=== PATIENT | male | born 1950 | race Two or more races ===

== ENCOUNTER 2022-01-04 19:57 | Inpatient (IN) | payer BC, OTHER ==
[~2022-01-04] VITALS: Ht 175.3 cm; Wt 96.8 kg
[2022-01-04] MEDS ORDERED: methylPREDNISolone SOD SUCC 125 MG/2 ML VL IV ONE ×2 (20:15→21:30)
[2022-01-04] MEDS ORDERED: ALBUTEROL SULF 2.5 MG/0.5ML(0.5%) NEB SOLN HHN ONE (20:15)
[2022-01-04] MEDS ORDERED: IPRATROPIUM BROM 0.5 MG/2.5ML INH SOL HHN ONE (20:15)
[2022-01-04] MEDS ORDERED: ALBUTEROL SULF 2.5 MG/0.5ML(0.5%) NEB SOLN NEB ONE (21:30)
[2022-01-04 21:57] LABS: Basophils # (auto) 0 10 ^3/uL (0-0.2); Basophils % (auto) 0.4 % (0.0-2.0); Eosinophils # (auto) 0 10 ^3/uL (0-0.8); Hematocrit 47.2 % (41.0-53.0); Hemoglobin 16.3 g/dL (13.5-17.5); Lymphocytes # (auto) 1.2 10 ^3/uL (0.4-5.4); Lymphocytes % (auto) 11.5 % (10.0-50.0); Mean Corpuscular Hemoglobin 33.7 pg (28.0-32.0); Mean Corpuscular Hgb Conc. 34.6 g/dL (32.0-36.0); Mean Corpuscular Volume 97.5 fL (80.0-100.0); Monocytes % (auto) 9.6 % (0.0-12.0); Neutrophils # (auto) 8.5 10 ^3/uL (1.6-8.6); Neutrophils % (auto) 78.5 % (37.0-80.0); Nucleated Red Blood Cells % 0.3 %; Red Blood Cells 4.85 10^6/uL (4.5-5.90); Red Cell Distribution Width 13.5 % (11.8-14.3); White Blood Cell 10.8 10^3/uL (4.4-10.8)
[2022-01-04] MEDS ORDERED: diazePAM 5 MG TAB PO ONE (22:15)
[2022-01-04] MEDS: MAGNESIUM SULFATE 1GM/100ML 100 ML IV SCH (23:00)
[2022-01-04 23:09] LABS: Albumin 2.7 g/dL (3.4-5.0); Calcium 8.7 mg/dL (8.5-10.1); Potassium 4.5 mmol/L (3.5-5.1)
[2022-01-04 23:14] LABS: BUN/Creatinine Ratio 31.3; Bilirubin, Total 1.1 mg/dL (0.2-1.0); Total Protein 7.9 g/dL (6.4-8.2)
[2022-01-04 23:16] LABS: Lactic Acid w/Reflex 3.7 mmol/L (0.4-2.0)
[2022-01-04] MEDS ORDERED: LORazepam 2MG/ML-1ML VIAL IV ONE (23:45)
[2022-01-05 00:03] LABS: INR 1.08 (0.9-1.15); Partial Thromboplastin Time 26.2 sec (23.6-33.0)
[2022-01-05] MEDS: MAGNESIUM SULFATE 1GM/100ML 100 ML IV SCH ×2 (00:08→00:09)
[2022-01-05] MEDS ORDERED: cefTRIAXone 1GM/50ML D5W 50 ML IV ONE (03:15)
[2022-01-05] MEDS ORDERED: HEPARIN SODIUM (PORCINE) 5000 UNITS/ML 1ML VIAL IV ONE (03:15)
[2022-01-05] MEDS ORDERED: HEPARIN DRIP/D5W 100UNITS/ML 250 ML IV SCH (03:15)
[2022-01-05] MEDS ORDERED: AZITHROMYCIN 500MG/ 250ML 250 ML IV ONE (03:15)
[2022-01-05] MEDS ORDERED: IOHEXOL 350 MG/ML 100ML IJ ONE (03:25)
[2022-01-05] MEDS ORDERED: IPRATROPIUM BROM 0.5 MG/2.5ML INH SOL NEB PRN (06:45)
[2022-01-05] MEDS ORDERED: DOCUSATE SOD 100 MG CAP PO PRN (06:45)
[2022-01-05] MEDS ORDERED: HYDROcodone-ACET 5/325MG TAB PO PRN (06:45)
[2022-01-05] MEDS ORDERED: ACETAMINOPHEN 325 MG TAB PO PRN (06:45)
[2022-01-05] MEDS ORDERED: hydrALAZINE HCL 20 MG/ML VL IV PRN (06:45)
[2022-01-05] MEDS ORDERED: ONDANSETRON HCL 4 MG/2 ML VIAL IV PRN (06:45)
[2022-01-05] MEDS ORDERED: FUROSEMIDE 40 MG/4 ML VIAL IV ONE (06:45)
[2022-01-05] MEDS ORDERED: AMLO-489 PO (06:58)
[2022-01-05] MEDS ORDERED: METO-158 PO (06:58)
[2022-01-05] MEDS ORDERED: MELO1TAB56 PO (06:58)
[2022-01-05] MEDS ORDERED: ALLO300T2 PO (06:58)
[2022-01-05] MEDS ORDERED: TIZA4TAB9 PO (06:58)
[2022-01-05] MEDS ORDERED: FURO1TAB33 PO (06:58)
[2022-01-05 07:03] LABS: Albumin 2.5 g/dL (3.4-5.0); Calcium 8.7 mg/dL (8.5-10.1); Potassium 3.6 mmol/L (3.5-5.1)
[2022-01-05 07:08] LABS: BUN/Creatinine Ratio 29.6; Bilirubin, Total 0.6 mg/dL (0.2-1.0); Total Protein 7.3 g/dL (6.4-8.2)
[2022-01-05] MEDS ORDERED: NITROGLYCERIN 0.4 MG SL TAB SL PRN (07:15)
[2022-01-05] MEDS ORDERED: MORPHINE SULFATE INJECTION 2 MG/ML SYRG IV PRN (07:15)
[2022-01-05] MEDS ORDERED: VANCOMYCIN PER PHARMACY 0 MG IV SCH (07:15)
[2022-01-05 07:45] VITALS: BP 132/87
[2022-01-05] MEDS ORDERED: VANCOMYCIN 1GM/250ML 250 ML IV ONE (08:15)
[2022-01-05] MEDS: amLODIPine BESYLATE 5 MG TAB PO SCH (09:09)
[2022-01-05] MEDS: FAMOTIDINE (10MG/ML) 2ML VL IV SCH ×2 (09:09→21:34)
[2022-01-05] MEDS: CARVEDILOL 12.5 MG TAB PO SCH ×2 (09:09→21:35)
[2022-01-05] MEDS: ZINC SULFATE 220mg CAP or TAB PO SCH (09:09)
[2022-01-05 09:50] VITALS: BP 120/72
[2022-01-05 10:08] LABS: Basophils # (auto) 0 10 ^3/uL (0-0.2); Basophils % (auto) 0.1 % (0.0-2.0); Eosinophils # (auto) 0 10 ^3/uL (0-0.8); Hematocrit 43.6 % (41.0-53.0); Hemoglobin 15.1 g/dL (13.5-17.5); Lymphocytes # (auto) 0.7 10 ^3/uL (0.4-5.4); Lymphocytes % (auto) 11.4 % (10.0-50.0); Mean Corpuscular Hemoglobin 33.5 pg (28.0-32.0); Mean Corpuscular Hgb Conc. 34.6 g/dL (32.0-36.0); Mean Corpuscular Volume 96.8 fL (80.0-100.0); Monocytes # (auto) 0.5 10 ^3/uL (0-1.3); Monocytes % (auto) 7.5 % (0.0-12.0); Neutrophils # (auto) 5.2 10 ^3/uL (1.6-8.6); Nucleated Red Blood Cells % 0.3 %; Red Blood Cells 4.51 10^6/uL (4.5-5.90); Red Cell Distribution Width 13.4 % (11.8-14.3); White Blood Cell 6.4 10^3/uL (4.4-10.8)
[2022-01-05 10:20] LABS: Lactic Acid w/Reflex 2.6 mmol/L (0.4-2.0)
[2022-01-05 10:23] LABS: INR 1.13 (0.9-1.15)
[2022-01-05 10:27] LABS: Partial Thromboplastin Time 78.8 sec (23.6-33.0)
[2022-01-05] MEDS: LORazepam 2MG/ML-1ML VIAL IV PRN ×4 (12:23→23:01)
[2022-01-05] MEDS: ALBUTEROL SULF 2.5 MG/0.5ML(0.5%) NEB SOLN NEB PRN ×2 (13:02→18:56)
[2022-01-05] MEDS: IPRATROPIUM BROM 0.5 MG/2.5ML INH SOL NEB SCH ×3 (13:02→22:00)
[2022-01-05 13:10] VITALS: BP 102/65
[2022-01-05] MEDS: SODIUM CHLOR 0.9% PF (SALINE LOCK) 10ML VIAL/SYR IV SCH ×2 (13:46→21:34)
[2022-01-05] MEDS: methylPREDNISolone SOD SUCC 40 MG/ML VL IV SCH ×2 (13:50→21:34)
[2022-01-05 16:50] LABS: INR 1.09 (0.9-1.15); Partial Thromboplastin Time 67.3 sec (23.6-33.0)
[2022-01-05] MEDS: HEPARIN DRIP/D5W 100UNITS/ML 250 ML IV SCH (17:54)
[2022-01-05 18:17] VITALS: BP 109/72
[2022-01-05 19:17] VITALS: BP 104/64
[2022-01-05 21:42] VITALS: BP 123/71
[2022-01-05] MEDS: VANCOMYCIN 1GM/250ML 250 ML IV SCH (22:35)
[2022-01-05 22:42] LABS: INR 1.08 (0.9-1.15)
[2022-01-06] MEDS: LORazepam 2MG/ML-1ML VIAL IV PRN ×5 (01:01→20:40)
[2022-01-06] MEDS: IPRATROPIUM BROM 0.5 MG/2.5ML INH SOL NEB SCH ×8 (02:00→22:15)
[2022-01-06 05:10] VITALS: BP 113/61
[2022-01-06] MEDS: methylPREDNISolone SOD SUCC 40 MG/ML VL IV SCH ×3 (05:22→22:13)
[2022-01-06] MEDS: SODIUM CHLOR 0.9% PF (SALINE LOCK) 10ML VIAL/SYR IV SCH ×3 (05:22→22:13)
[2022-01-06] MEDS: chlordiazePOXIDE HCL 25 MG CAP PO SCH ×3 (05:42→18:00)
[2022-01-06 06:00] LABS: Basophils # (auto) 0 10 ^3/uL (0-0.2); Basophils % (auto) 0.1 % (0.0-2.0); Eosinophils # (auto) 0 10 ^3/uL (0-0.8); Hematocrit 42.3 % (41.0-53.0); Hemoglobin 14.6 g/dL (13.5-17.5); Lymphocytes # (auto) 1.1 10 ^3/uL (0.4-5.4); Lymphocytes % (auto) 7.3 % (10.0-50.0); Mean Corpuscular Hemoglobin 33.3 pg (28.0-32.0); Mean Corpuscular Hgb Conc. 34.6 g/dL (32.0-36.0); Mean Corpuscular Volume 96.2 fL (80.0-100.0); Monocytes # (auto) 0.8 10 ^3/uL (0-1.3); Monocytes % (auto) 5.5 % (0.0-12.0); Neutrophils # (auto) 12.9 10 ^3/uL (1.6-8.6); Neutrophils % (auto) 87.1 % (37.0-80.0); Nucleated Red Blood Cells % 0.1 %; Red Blood Cells 4.39 10^6/uL (4.5-5.90); Red Cell Distribution Width 13.4 % (11.8-14.3); White Blood Cell 14.8 10^3/uL (4.4-10.8)
[2022-01-06] MEDS: ALBUTEROL SULF 2.5 MG/0.5ML(0.5%) NEB SOLN NEB PRN ×2 (06:07→18:31)
[2022-01-06 06:15] LABS: INR 1.08 (0.9-1.15); Partial Thromboplastin Time 55.6 sec (23.6-33.0)
[2022-01-06 06:41] LABS: Albumin 2.5 g/dL (3.4-5.0); BUN/Creatinine Ratio 40.2; Calcium 8.2 mg/dL (8.5-10.1); Magnesium 3.2 mg/dL (1.6-2.6); Potassium 3.3 mmol/L (3.5-5.1)
[2022-01-06 06:44] LABS: Bilirubin, Total 0.6 mg/dL (0.2-1.0); Total Protein 6.8 g/dL (6.4-8.2)
[2022-01-06 09:00] VITALS: BP 133/74
[2022-01-06] MEDS: HEPARIN DRIP/D5W 100UNITS/ML 250 ML IV SCH (09:23)
[2022-01-06] MEDS: ZINC SULFATE 220mg CAP or TAB PO SCH (10:00)
[2022-01-06] MEDS: AZITHROMYCIN 500MG/ 250ML 250 ML IV SCH (10:00)
[2022-01-06] MEDS: FUROSEMIDE 40 MG/4 ML VIAL IV SCH (10:00)
[2022-01-06] MEDS: amLODIPine BESYLATE 5 MG TAB PO SCH (10:00)
[2022-01-06] MEDS: CARVEDILOL 12.5 MG TAB PO SCH ×2 (10:00→22:15)
[2022-01-06] MEDS: FAMOTIDINE (10MG/ML) 2ML VL IV SCH ×2 (10:00→22:13)
[2022-01-06 13:00] VITALS: BP 142/78
[2022-01-06] MEDS: VANCOMYCIN 1GM/250ML 250 ML IV SCH (13:00)
[2022-01-06] MEDS: MORPHINE SULFATE INJECTION 2 MG/ML SYRG IV PRN ×2 (16:17→21:30)
[2022-01-06 16:38] LABS: INR 1.1 (0.9-1.15); Partial Thromboplastin Time 43.8 sec (23.6-33.0)
[2022-01-06 16:51] VITALS: BP 142/83
[2022-01-06 22:00] VITALS: BP 132/85
[2022-01-07] MEDS: LORazepam 2MG/ML-1ML VIAL IV PRN ×4 (00:38→21:20)
[2022-01-07] MEDS: HEPARIN DRIP/D5W 100UNITS/ML 250 ML IV SCH (02:00)
[2022-01-07 02:48] LABS: INR 1.11 (0.9-1.15); Partial Thromboplastin Time 41.8 sec (23.6-33.0)
[2022-01-07 02:50] LABS: BUN/Creatinine Ratio 48.9; Calcium 8.6 mg/dL (8.5-10.1); Potassium 3.7 mmol/L (3.5-5.1)
[2022-01-07] MEDS: VANCOMYCIN 1GM/250ML 250 ML IV SCH ×3 (03:30→23:00)
[2022-01-07 05:00] VITALS: BP 137/71
[2022-01-07] MEDS: ALBUTEROL SULF 2.5 MG/0.5ML(0.5%) NEB SOLN NEB PRN ×4 (05:55→20:09)
[2022-01-07] MEDS: IPRATROPIUM BROM 0.5 MG/2.5ML INH SOL NEB SCH ×4 (05:56→20:09)
[2022-01-07] MEDS: SODIUM CHLOR 0.9% PF (SALINE LOCK) 10ML VIAL/SYR IV SCH ×3 (06:00→22:00)
[2022-01-07] MEDS: chlordiazePOXIDE HCL 25 MG CAP PO SCH ×4 (06:00→18:00)
[2022-01-07] MEDS: methylPREDNISolone SOD SUCC 40 MG/ML VL IV SCH ×3 (06:00→22:00)
[2022-01-07 07:09] LABS: Basophils # (auto) 0 10 ^3/uL (0-0.2); Basophils % (auto) 0.2 % (0.0-2.0); Eosinophils # (auto) 0 10 ^3/uL (0-0.8); Hematocrit 45.3 % (41.0-53.0); Hemoglobin 15.2 g/dL (13.5-17.5); Lymphocytes # (auto) 0.8 10 ^3/uL (0.4-5.4); Lymphocytes % (auto) 5.9 % (10.0-50.0); Mean Corpuscular Hemoglobin 32.9 pg (28.0-32.0); Mean Corpuscular Hgb Conc. 33.6 g/dL (32.0-36.0); Mean Corpuscular Volume 98.1 fL (80.0-100.0); Monocytes # (auto) 0.8 10 ^3/uL (0-1.3); Monocytes % (auto) 5.5 % (0.0-12.0); Neutrophils # (auto) 12.6 10 ^3/uL (1.6-8.6); Neutrophils % (auto) 88.4 % (37.0-80.0); Nucleated Red Blood Cells % 0.1 %; Red Blood Cells 4.62 10^6/uL (4.5-5.90); Red Cell Distribution Width 13.3 % (11.8-14.3); White Blood Cell 14.2 10^3/uL (4.4-10.8)
[2022-01-07 08:03] LABS: INR 1.12 (0.9-1.15)
[2022-01-07 09:00] VITALS: BP 153/94
[2022-01-07] MEDS: FAMOTIDINE (10MG/ML) 2ML VL IV SCH ×2 (10:00→22:00)
[2022-01-07] MEDS: AZITHROMYCIN 500MG/ 250ML 250 ML IV SCH (10:00)
[2022-01-07] MEDS: amLODIPine BESYLATE 5 MG TAB PO SCH (10:00)
[2022-01-07] MEDS: ZINC SULFATE 220mg CAP or TAB PO SCH (10:00)
[2022-01-07] MEDS: FUROSEMIDE 40 MG/4 ML VIAL IV SCH (10:00)
[2022-01-07] MEDS: CARVEDILOL 12.5 MG TAB PO SCH ×2 (10:00→22:00)
[2022-01-07 13:00] VITALS: BP 138/70
[2022-01-07] MEDS: MORPHINE SULFATE INJECTION 2 MG/ML SYRG IV PRN ×2 (15:15→18:32)
[2022-01-07 17:00] VITALS: BP 131/94
[2022-01-07] MEDS: ENOXAPARIN SOD 100 MG/1 ML SYRINGE SC SCH (22:00)
[2022-01-08] MEDS: IPRATROPIUM BROM 0.5 MG/2.5ML INH SOL NEB SCH ×4 (03:12→14:40)
[2022-01-08] MEDS: ALBUTEROL SULF 2.5 MG/0.5ML(0.5%) NEB SOLN NEB PRN ×4 (03:12→14:40)
[2022-01-08] MEDS: chlordiazePOXIDE HCL 25 MG CAP PO SCH ×3 (06:00→12:00)
[2022-01-08] MEDS: methylPREDNISolone SOD SUCC 40 MG/ML VL IV SCH (06:00)
[2022-01-08] MEDS: SODIUM CHLOR 0.9% PF (SALINE LOCK) 10ML VIAL/SYR IV SCH ×2 (06:00→14:00)
[2022-01-08] MEDS: VANCOMYCIN 1GM/250ML 250 ML IV SCH (09:00)
[2022-01-08] MEDS: LORazepam 2MG/ML-1ML VIAL IV PRN (09:32)
[2022-01-08] MEDS: FAMOTIDINE (10MG/ML) 2ML VL IV SCH (09:33)
[2022-01-08] MEDS: FUROSEMIDE 40 MG/4 ML VIAL IV SCH (09:34)
[2022-01-08] MEDS: ENOXAPARIN SOD 100 MG/1 ML SYRINGE SC SCH (09:34)
[2022-01-08] MEDS: AZITHROMYCIN 500MG/ 250ML 250 ML IV SCH (09:35)
[2022-01-08 09:53] LABS: Potassium 3.9 mmol/L (3.5-5.1)
[2022-01-08] MEDS: ZINC SULFATE 220mg CAP or TAB PO SCH (10:00)
[2022-01-08] MEDS: amLODIPine BESYLATE 5 MG TAB PO SCH (10:00)
[2022-01-08] MEDS: CARVEDILOL 12.5 MG TAB PO SCH (10:00)
[2022-01-08 10:03] LABS: BUN/Creatinine Ratio 37.7; Calcium 9.4 mg/dL (8.5-10.1)
[2022-01-08] MEDS: MORPHINE SULFATE INJECTION 2 MG/ML SYRG IV PRN (12:16)
[2022-01-08 12:46] VITALS: BP 128/88
== END 2022-01-08 16:48 | disposition hospice, home (50) | DRG 871 ==
LOC: EDBD 19:57 → ER 19:57 → TELE 01-05 07:15 → TELE-CENTR 01-05 17:18 → TELE-EAST 01-07 21:41
PROVIDERS: ADMIT Nurse Practitioner Family; ATTEND Internal Medicine Geriatric Medicine
PROC: 5A09357 Assistance with Respiratory Ventilation, Less than 24 Consecutive Hours, Continuous Positive Airway Pressure (ICD-10-PCS; principal; 2022-01-05)
PROC: 5A09357 Assistance with Respiratory Ventilation, Less than 24 Consecutive Hours, Continuous Positive Airway Pressure (ICD-10-PCS; 2022-01-06)
DX: A41.9 Sepsis, unspecified organism (principal); I26.99 Other pulmonary embolism without acute cor pulmonale; J96.21 Acute and chronic respiratory failure with hypoxia; J18.9 Pneumonia, unspecified organism; J44.1 Chronic obstructive pulmonary disease with (acute) exacerbation; J44.0 Chronic obstructive pulmonary disease with (acute) lower respiratory infection; Z20.822 Contact with and (suspected) exposure to COVID-19; Z66 Do not resuscitate; E88.09 Other disorders of plasma-protein metabolism, not elsewhere classified; R73.9 Hyperglycemia, unspecified; I10 Essential (primary) hypertension; K44.9 Diaphragmatic hernia without obstruction or gangrene; R53.81 Other malaise; Z51.5 Encounter for palliative care; Z86.16 Personal history of COVID-19; Z87.01 Personal history of pneumonia (recurrent)
CPT/HCPCS: 36415; 71045; 71275; 80048; 80053; 80202; 83036; 83605; 83735; 83880; 84484; 85025; 85379; 85610; 85730; 87040; 87426; 93005; 94640; 94660; 96365; 96375; 99291; G0378; J0696; J3490